=== PATIENT | male | born 1940 | race Caucasian/White ===

== ENCOUNTER 2020-02-03 18:50 | Inpatient (IN) | payer MEDICARE, MEDICAID ==
[~2020-02-03] VITALS: Ht 167.6 cm; Wt 101.6 kg
[2020-02-03] MEDS ORDERED: ACETAMINOPHEN 325MG TABLET PO STA (19:04)
[2020-02-03] MEDS ORDERED: SODIUM CHLORIDE 0.9% 1,000 ML IV ONE (19:04)
[2020-02-03] MEDS ORDERED: LEVOFLOXACIN 500MG PREMIX 100 ML IV ONE (19:15)
[2020-02-03 21:21] LABS: BASOPHILS % 0.2 % (0.0-2.0); HEMATOCRIT. 40.8 % (42.0-52.0); HEMOGLOBIN. 14.5 g/dL (14.0-18.0); LYMPHOCYTES % 10.2 % (20.0-50.0); MEAN CORPUSCULAR HEMOGLOBIN 32.8 pg (28.0-32.0); MEAN CORPUSCULAR VOLUME 92.7 fL (80.0-94.0); MEAN PLATELET VOLUME 7.6 fl (7.4-10.4); NEUTROPHILS % 84.6 % (40.0-76.0); PLATELET 178 x1000/uL (130-400); RED BLOOD CELL COUNT 4.41 mill/uL (4.7-6.1); RED CELL DISTRIBUTION WIDTH 14.5 % (11.6-14.6)
[2020-02-03 21:29] LABS: CHLORIDE 98 mEq/L (98-107)
[2020-02-03 21:33] LABS: ETHANOL BLOOD < 10 mg/dL
[2020-02-03 21:37] LABS: CREATINE KINASE 244 IU/L (39-308)
[2020-02-03 21:38] LABS: D-DIMER 1.24 mg/L FEU (<0.50); INR 1.1; PROTHROMBIN TIME 12.1 sec (9.6-11.0)
[2020-02-03 21:46] LABS: C REACTIVE PROTEIN QUANT > 190.0 mg/L (0.0-3.0)
[2020-02-04 03:31] VITALS: BP 121/67
[2020-02-04 04:07] VITALS: BP 121/67
[2020-02-04 08:00] VITALS: BP 133/72
[2020-02-04] MEDS: BLOOD SUGAR DIAGNOSTIC STRIP TEST SCH ×4 (08:08→21:00)
[2020-02-04] MEDS: INSULIN LISPRO 100 UNITS/ML SUBCUT SCH ×4 (08:08→21:00)
[2020-02-04] MEDS ORDERED: DEXTROSE 50% WATER 50ML SYRINGE IV PRN (08:15)
[2020-02-04] MEDS ORDERED: POTASSIUM CHLORIDE 20MEQ TABLET SR PO NR (08:15)
[2020-02-04 12:00] VITALS: BP 164/56
[2020-02-04] MEDS ORDERED: ONDANSETRON HCL 4MG/2ML INJ IV PRN (13:45)
[2020-02-04] MEDS ORDERED: ZOLPIDEM TARTRATE 5MG TABLET PO PRN (13:45)
[2020-02-04] MEDS ORDERED: DIPHENHYDRAMINE 50MG/ML VIAL IV PRN (13:45)
[2020-02-04] MEDS ORDERED: ACETAMINOPHEN 325MG TABLET PO PRN (13:45)
[2020-02-04] MEDS ORDERED: MAGNESIUM/ALUMINUM HYDROXIDE/SIMETHICONE 30ML UDC PO PRN (13:45)
[2020-02-04] MEDS ORDERED: CLON-457 PO (14:32)
[2020-02-04] MEDS ORDERED: PIOG15TA68 PO (14:32)
[2020-02-04] MEDS ORDERED: AMLO-78 MT (14:32)
[2020-02-04] MEDS ORDERED: PENI500T PO (14:32)
[2020-02-04] MEDS ORDERED: METF-414 PO (14:32)
[2020-02-04] MEDS ORDERED: PRAV40TA58 MT (14:32)
[2020-02-04] MEDS ORDERED: ALBUTEROL 6.7GM HFA INHALER ORI PRN (14:45)
[2020-02-04] MEDS ORDERED: BENZONATATE 100MG CAPSULE PO PRN (14:45)
[2020-02-04] MEDS ORDERED: AZITHROMYCIN 500 MG TABLET PO NR (15:00)
[2020-02-04] MEDS ORDERED: CEFTRIAXONE 1 G PREMIX 50 ML IV SCH (16:00)
[2020-02-04] MEDS: SODIUM CHLORIDE 0.9% INJ 3ML FLUSH IVF SCH ×2 (18:39→22:17)
[2020-02-04] MEDS: ENOXAPARIN 40MG/0.4ML SYR SUBCUT SCH (18:40)
[2020-02-04] MEDS: ACETAMINOPHEN 325MG TABLET PO PRN (18:40)
[2020-02-04 20:00] VITALS: BP 115/50
[2020-02-04] MEDS: GUAIFENESIN 600MG ER TABLET PO SCH (22:17)
[2020-02-04 23:06] LABS: CLARITY URINE CLEAR (CLEAR); COLOR URINE DARK YELLOW (YELLOW); KETONES URINE 1+ (NEGATIVE); LEUKOCYTE ESTERASE URINE NEGATIVE (NEGATIVE); NITRITE URINE NEGATIVE (NEGATIVE); OCCULT BLOOD URINE 2+ (NEGATIVE); PH URINE 5.5 (4.5-8.0); PROTEIN URINE 2+ (NEGATIVE); SPECIFIC GRAVITY URINE 1.023 (1.005-1.030)
[2020-02-04 23:18] LABS: *AMPHETAMINES SCREEN URINE NEGATIVE (NEGATIVE); *BARBITURATES SCREEN URINE NEGATIVE (NEGATIVE)
[2020-02-04 23:19] LABS: *BENZODIAZEPINES SCREEN URINE NEGATIVE (NEGATIVE); *COCAINE SCREEN URINE NEGATIVE (NEGATIVE); METHADONE URINE SCREEN NEGATIVE (NEGATIVE); OPIATES URINE SCREEN NEGATIVE (NEGATIVE); PHENCYCLIDINE URINE SCREEN NEGATIVE (NEGATIVE)
[2020-02-04 23:20] LABS: CANNABINOID URINE SCREEN NEGATIVE (NEGATIVE)
[2020-02-05 00:18] VITALS: BP 118/52
[2020-02-05 04:00] VITALS: BP 139/65
[2020-02-05] MEDS: SODIUM CHLORIDE 0.9% INJ 3ML FLUSH IVF SCH ×3 (05:57→21:29)
[2020-02-05] MEDS: INSULIN LISPRO 100 UNITS/ML SUBCUT SCH ×4 (05:57→21:29)
[2020-02-05] MEDS: BLOOD SUGAR DIAGNOSTIC STRIP TEST SCH ×4 (05:57→21:28)
[2020-02-05] MEDS: ACETAMINOPHEN 325MG TABLET PO PRN (06:45)
[2020-02-05 08:00] VITALS: BP 138/70
[2020-02-05] MEDS: AZITHROMYCIN 250 MG TABLET PO SCH (09:30)
[2020-02-05] MEDS: GUAIFENESIN 600MG ER TABLET PO SCH ×2 (09:31→21:27)
[2020-02-05] MEDS: ENOXAPARIN 40MG/0.4ML SYR SUBCUT SCH (09:31)
[2020-02-05 11:48] LABS: BG BASE EXCESS 0.2 mmol/L (-2.0-2.0); BG CARBOXYHEMOGLOBIN 0.5 % (0.5-1.5); BG DEOXYHEMOGLOBIN 19.8 % (0.0-5.0); BG FRACTION INSPIRED OXYGEN 21; BG HCO3 ACT 24.6 mmol/L (22.0-26.0); BG METHEMOGLOBIN 0.3 % (0.0-1.5); BG OXYHEMOGLOBIN 79.4 % (94.0-97.0); BG PCO2 39.1 mmHg (35.0-45.0); BG PH 7.416 (7.350-7.450); BG PO2 43.4 mmHg (75.0-100.0); BG SAMPLE SITE RIGHT RADIAL; BG TOTAL HEMOGLOBIN 13.8 g/dL (12.0-18.0); BG VENT MODE ROOM AIR
[2020-02-05 12:00] VITALS: BP 141/72
[2020-02-05] MEDS ORDERED: METHYLPREDNISOLONE SOD SUCC 40 MG/ML VIAL IV SCH (14:00)
[2020-02-05] MEDS: METHYLPREDNISOLONE SOD SUCC 40 MG/ML VIAL IV SCH ×2 (14:28→21:27)
[2020-02-05 16:00] VITALS: BP 133/61
[2020-02-05 16:24] LABS: BASOPHILS % 0.4 % (0.0-2.0); EOSINOPHILS % 1.3 % (0.0-5.0); HEMATOCRIT. 37.5 % (42.0-52.0); LYMPHOCYTES % 20.4 % (20.0-50.0); MEAN CORPUSCULAR HEMOGLOBIN 32.3 pg (28.0-32.0); MEAN CORPUSCULAR VOLUME 93.3 fL (80.0-94.0); MEAN PLATELET VOLUME 7.5 fl (7.4-10.4); MONOCYTES % 7.8 % (2.0-8.0); NEUTROPHILS % 70.1 % (40.0-76.0); PLATELET 209 x1000/uL (130-400); RED BLOOD CELL COUNT 4.02 mill/uL (4.7-6.1); RED CELL DISTRIBUTION WIDTH 14.9 % (11.6-14.6)
[2020-02-05 16:35] LABS: CHLORIDE 102 mEq/L (98-107); D-DIMER 0.89 mg/L FEU (<0.50); INR 1.1; PROTHROMBIN TIME 11.4 sec (9.6-11.0)
[2020-02-05] MEDS ORDERED: POTASSIUM CHLORIDE 20MEQ TABLET SR PO NR (18:00)
[2020-02-05] MEDS: CEFTRIAXONE 1,000 MG in DEXTROSE 5% WATER 50 ML IV SCH (18:04)
[2020-02-05 20:00] VITALS: BP 141/66
[2020-02-05] MEDS: ENOXAPARIN 100MG/ML SYR SUBCUT SCH (21:28)
[2020-02-06] VITALS: BP 114/69
[2020-02-06 04:00] VITALS: BP 145/77
[2020-02-06 04:16] LABS: BASOPHILS % 0.1 % (0.0-2.0); HEMATOCRIT. 38.2 % (42.0-52.0); HEMOGLOBIN. 13.5 g/dL (14.0-18.0); MEAN CORPUSCULAR HEMOGLOBIN 32.7 pg (28.0-32.0); MEAN CORPUSCULAR VOLUME 92.7 fL (80.0-94.0); MEAN PLATELET VOLUME 7.4 fl (7.4-10.4); MONOCYTES % 4.6 % (2.0-8.0); NEUTROPHILS % 80.3 % (40.0-76.0); PLATELET 229 x1000/uL (130-400); RED BLOOD CELL COUNT 4.13 mill/uL (4.7-6.1); RED CELL DISTRIBUTION WIDTH 14.7 % (11.6-14.6)
[2020-02-06 04:20] LABS: PROTHROMBIN TIME 11.3 sec (9.6-11.0)
[2020-02-06 04:24] LABS: CHLORIDE 106 mEq/L (98-107)
[2020-02-06] MEDS: SODIUM CHLORIDE 0.9% INJ 3ML FLUSH IVF SCH ×3 (06:42→22:12)
[2020-02-06] MEDS: METHYLPREDNISOLONE SOD SUCC 40 MG/ML VIAL IV SCH ×3 (06:42→22:11)
[2020-02-06] MEDS: BLOOD SUGAR DIAGNOSTIC STRIP TEST SCH ×4 (06:42→21:03)
[2020-02-06] MEDS: INSULIN LISPRO 100 UNITS/ML SUBCUT SCH ×3 (06:43→21:00)
[2020-02-06 08:00] VITALS: BP 130/76
[2020-02-06] MEDS: ENOXAPARIN 100MG/ML SYR SUBCUT SCH ×2 (10:42→22:11)
[2020-02-06] MEDS: AZITHROMYCIN 250 MG TABLET PO SCH (10:42)
[2020-02-06] MEDS: GUAIFENESIN 600MG ER TABLET PO SCH ×2 (10:42→22:10)
[2020-02-06 12:00] VITALS: BP 132/69
[2020-02-06 16:00] VITALS: BP 126/81
[2020-02-06] MEDS: CEFTRIAXONE 1,000 MG in DEXTROSE 5% WATER 50 ML IV SCH (18:32)
[2020-02-06 20:00] VITALS: BP 165/80
[2020-02-07] VITALS: BP_SYST 130; BP_SYST 66; BP_DIAS 66
[2020-02-07 04:00] VITALS: BP 136/74
[2020-02-07 06:38] LABS: MEAN CORPUSCULAR HEMOGLOBIN 32.6 pg (28.0-32.0); MEAN CORPUSCULAR VOLUME 92.9 fL (80.0-94.0); PLATELET 310 x1000/uL (130-400); RED BLOOD CELL COUNT 3.99 mill/uL (4.7-6.1); RED CELL DISTRIBUTION WIDTH 14.3 % (11.6-14.6)
[2020-02-07] MEDS: BLOOD SUGAR DIAGNOSTIC STRIP TEST SCH ×4 (06:38→21:46)
[2020-02-07] MEDS: METHYLPREDNISOLONE SOD SUCC 40 MG/ML VIAL IV SCH ×3 (06:57→21:53)
[2020-02-07] MEDS: INSULIN LISPRO 100 UNITS/ML SUBCUT SCH ×4 (06:58→21:55)
[2020-02-07] MEDS: SODIUM CHLORIDE 0.9% INJ 3ML FLUSH IVF SCH ×3 (06:58→21:54)
[2020-02-07 07:21] LABS: CHLORIDE 106 mEq/L (98-107)
[2020-02-07 08:00] VITALS: BP 153/74
[2020-02-07] MEDS: GUAIFENESIN 600MG ER TABLET PO SCH ×2 (09:14→21:53)
[2020-02-07] MEDS: AZITHROMYCIN 250 MG TABLET PO SCH (09:14)
[2020-02-07] MEDS: ENOXAPARIN 100MG/ML SYR SUBCUT SCH ×2 (09:14→21:53)
[2020-02-07 09:42] LABS: BG CARBOXYHEMOGLOBIN 0.3 % (0.5-1.5); BG FRACTION INSPIRED OXYGEN 52; BG HCO3 ACT 27.4 mmol/L (22.0-26.0); BG METHEMOGLOBIN 0.2 % (0.0-1.5); BG OXYHEMOGLOBIN 93.5 % (94.0-97.0); BG PCO2 41.1 mmHg (35.0-45.0); BG PH 7.441 (7.350-7.450); BG PO2 68.6 mmHg (75.0-100.0); BG SAMPLE SITE RIGHT RADIAL; BG TOTAL HEMOGLOBIN 14.3 g/dL (12.0-18.0); BG VENT MODE NASAL CANNULA
[2020-02-07] MEDS ORDERED: LIDOCAINE HCL/PF 1% 2ML VIAL ONE (10:25)
[2020-02-07 12:00] VITALS: BP 156/71
[2020-02-07 16:00] VITALS: BP 148/73
[2020-02-07] MEDS: CEFTRIAXONE 1,000 MG in DEXTROSE 5% WATER 50 ML IV SCH (17:27)
[2020-02-07 20:00] VITALS: BP 162/77
[2020-02-07] MEDS: CLONIDINE 0.1MG TABLET PO PRN (21:53)
[2020-02-08] VITALS (7 sets, daily range): BP systolic 132–165; BP diastolic 71–82
[2020-02-08] MEDS: SODIUM CHLORIDE 0.9% INJ 3ML FLUSH IVF SCH ×3 (06:13→21:23)
[2020-02-08] MEDS: METHYLPREDNISOLONE SOD SUCC 40 MG/ML VIAL IV SCH ×3 (06:13→21:23)
[2020-02-08] MEDS: BLOOD SUGAR DIAGNOSTIC STRIP TEST SCH ×4 (06:36→21:35)
[2020-02-08] MEDS: INSULIN LISPRO 100 UNITS/ML SUBCUT SCH ×4 (06:38→21:54)
[2020-02-08] MEDS: GUAIFENESIN 600MG ER TABLET PO SCH ×2 (08:15→21:23)
[2020-02-08] MEDS: AZITHROMYCIN 250 MG TABLET PO SCH (08:15)
[2020-02-08] MEDS: ENOXAPARIN 100MG/ML SYR SUBCUT SCH ×2 (08:16→21:25)
[2020-02-08] MEDS ORDERED: INSULIN LISPRO 100 UNITS/ML SUBCUT NR (12:23)
[2020-02-08] MEDS: CEFTRIAXONE 1,000 MG in DEXTROSE 5% WATER 50 ML IV SCH (18:17)
[2020-02-08] MEDS: CLONIDINE 0.1MG TABLET PO PRN (21:39)
[2020-02-08] MEDS: INSULIN GLARGINE UD 100 UNITS/ML SYR SUBCUT SCH (23:12)
[2020-02-09] VITALS: BP 149/78
[2020-02-09 04:48] VITALS: BP 136/81
[2020-02-09] MEDS: SODIUM CHLORIDE 0.9% INJ 3ML FLUSH IVF SCH ×3 (05:42→21:41)
[2020-02-09] MEDS: METHYLPREDNISOLONE SOD SUCC 40 MG/ML VIAL IV SCH ×2 (05:42→13:23)
[2020-02-09] MEDS: BLOOD SUGAR DIAGNOSTIC STRIP TEST SCH ×4 (06:22→20:28)
[2020-02-09] MEDS: INSULIN LISPRO 100 UNITS/ML SUBCUT SCH ×4 (06:27→21:03)
[2020-02-09 08:00] VITALS: BP 157/87
[2020-02-09] MEDS: ENOXAPARIN 100MG/ML SYR SUBCUT SCH ×2 (08:20→20:48)
[2020-02-09] MEDS: GUAIFENESIN 600MG ER TABLET PO SCH ×2 (08:20→20:48)
[2020-02-09 09:12] LABS: HEMATOCRIT 39.3 % (42.0-52.0); HEMOGLOBIN 13.3 g/dL (14.0-18.0); MEAN CORPUSCULAR HEMOGLOBIN 31.6 pg (28.0-32.0); MEAN CORPUSCULAR VOLUME 93.3 fL (80.0-94.0); PLATELET 360 x1000/uL (130-400); RED BLOOD CELL COUNT 4.22 mill/uL (4.7-6.1); RED CELL DISTRIBUTION WIDTH 14.5 % (11.6-14.6)
[2020-02-09 09:29] LABS: CHLORIDE 103 mEq/L (98-107)
[2020-02-09 09:49] LABS: BG BASE EXCESS 3.9 mmol/L (-2.0-2.0); BG CARBOXYHEMOGLOBIN 0.2 % (0.5-1.5); BG DEOXYHEMOGLOBIN 3.7 % (0.0-5.0); BG FRACTION INSPIRED OXYGEN 48; BG HCO3 ACT 28.8 mmol/L (22.0-26.0); BG METHEMOGLOBIN 0.1 % (0.0-1.5); BG OXYGEN SATURATION 96.3 % (92.0-98.5); BG PCO2 44.6 mmHg (35.0-45.0); BG PH 7.428 (7.350-7.450); BG SAMPLE SITE RIGHT RADIAL; BG TOTAL HEMOGLOBIN 13.4 g/dL (12.0-18.0); BG VENT MODE NASAL CANNULA
[2020-02-09] MEDS: INSULIN GLARGINE UD 100 UNITS/ML SYR SUBCUT SCH ×2 (10:28→21:45)
[2020-02-09 12:00] VITALS: BP 155/83
[2020-02-09 16:00] VITALS: BP 155/83
[2020-02-09] MEDS: CEFTRIAXONE 1,000 MG in DEXTROSE 5% WATER 50 ML IV SCH (18:04)
[2020-02-09 20:51] VITALS: BP 142/72
[2020-02-10 00:15] VITALS: BP 135/77
[2020-02-10] MEDS: METHYLPREDNISOLONE SOD SUCC 40 MG/ML VIAL IV SCH ×3 (02:30→21:59)
[2020-02-10 04:00] VITALS: BP 144/69
[2020-02-10] MEDS: SODIUM CHLORIDE 0.9% INJ 3ML FLUSH IVF SCH ×3 (05:18→21:54)
[2020-02-10] MEDS: BLOOD SUGAR DIAGNOSTIC STRIP TEST SCH ×4 (05:54→21:55)
[2020-02-10] MEDS: INSULIN LISPRO 100 UNITS/ML SUBCUT SCH ×4 (06:12→21:53)
[2020-02-10 08:00] VITALS: BP 154/83
[2020-02-10] MEDS: GUAIFENESIN 600MG ER TABLET PO SCH ×2 (09:25→21:53)
[2020-02-10] MEDS: ENOXAPARIN 100MG/ML SYR SUBCUT SCH ×2 (09:26→21:52)
[2020-02-10] MEDS: INSULIN GLARGINE UD 100 UNITS/ML SYR SUBCUT SCH ×2 (10:42→21:54)
[2020-02-10 12:00] VITALS: BP 160/82
[2020-02-10 16:00] VITALS: BP 151/79
[2020-02-10 20:00] VITALS: BP 161/79
[2020-02-11] VITALS: BP 149/70
[2020-02-11 04:00] VITALS: BP 148/79
[2020-02-11] MEDS: SODIUM CHLORIDE 0.9% INJ 3ML FLUSH IVF SCH ×3 (05:16→21:55)
[2020-02-11] MEDS: BLOOD SUGAR DIAGNOSTIC STRIP TEST SCH ×4 (06:20→21:54)
[2020-02-11] MEDS: INSULIN LISPRO 100 UNITS/ML SUBCUT SCH ×4 (06:28→21:53)
[2020-02-11 08:00] VITALS: BP 160/75
[2020-02-11 08:01] LABS: CHLORIDE 102 mEq/L (98-107)
[2020-02-11] MEDS: GUAIFENESIN 600MG ER TABLET PO SCH ×2 (10:59→21:53)
[2020-02-11] MEDS: ENOXAPARIN 100MG/ML SYR SUBCUT SCH ×2 (10:59→21:55)
[2020-02-11] MEDS: INSULIN GLARGINE UD 100 UNITS/ML SYR SUBCUT SCH ×2 (11:00→21:52)
[2020-02-11 11:12] LABS: BG BASE EXCESS 3.6 mmol/L (-2.0-2.0); BG CARBOXYHEMOGLOBIN 0.1 % (0.5-1.5); BG DEOXYHEMOGLOBIN 8.9 % (0.0-5.0); BG FRACTION INSPIRED OXYGEN 21; BG HCO3 ACT 27.4 mmol/L (22.0-26.0); BG METHEMOGLOBIN 0.1 % (0.0-1.5); BG OXYGEN SATURATION 91.1 % (92.0-98.5); BG OXYHEMOGLOBIN 90.9 % (94.0-97.0); BG PH 7.465 (7.350-7.450); BG PO2 58.5 mmHg (75.0-100.0); BG SAMPLE SITE RIGHT RADIAL; BG TOTAL HEMOGLOBIN 14.4 g/dL (12.0-18.0); BG VENT MODE ROOM AIR
[2020-02-11 12:00] VITALS: BP 157/80
[2020-02-11 16:00] VITALS: BP 160/80
[2020-02-11 20:00] VITALS: BP 154/69
[2020-02-11] MEDS: CLONIDINE 0.1MG TABLET PO PRN (21:54)
[2020-02-11] MEDS: METHYLPREDNISOLONE SOD SUCC 40 MG/ML VIAL IV SCH (21:55)
[2020-02-12] VITALS (7 sets, daily range): BP systolic 109–158; BP diastolic 73–86
[2020-02-12] MEDS: SODIUM CHLORIDE 0.9% INJ 3ML FLUSH IVF SCH ×3 (05:09→21:07)
[2020-02-12] MEDS: BLOOD SUGAR DIAGNOSTIC STRIP TEST SCH ×4 (06:23→21:13)
[2020-02-12] MEDS: INSULIN LISPRO 100 UNITS/ML SUBCUT SCH ×4 (06:36→21:08)
[2020-02-12] MEDS: INSULIN GLARGINE UD 100 UNITS/ML SYR SUBCUT SCH ×2 (10:21→22:00)
[2020-02-12] MEDS: ENOXAPARIN 100MG/ML SYR SUBCUT SCH ×2 (10:22→21:07)
[2020-02-12] MEDS: GUAIFENESIN 600MG ER TABLET PO SCH ×2 (10:22→21:07)
[2020-02-12] MEDS ORDERED: METF-414 MT (13:50)
[2020-02-12] MEDS ORDERED: BLOO-1465 MT (13:50)
[2020-02-12] MEDS ORDERED: BLOO1KIT74 TP (13:50)
[2020-02-12] MEDS ORDERED: AMLO5TAB4 MT (13:50)
[2020-02-12] MEDS ORDERED: ALBU90AE INH (13:50)
[2020-02-12] MEDS ORDERED: P20 PO (13:50)
[2020-02-12] MEDS ORDERED: INSU100I28 SQ (13:50)
[2020-02-12] MEDS: METHYLPREDNISOLONE SOD SUCC 40 MG/ML VIAL IV SCH (21:07)
[2020-02-13] VITALS: BP 157/77
== END 2020-02-13 02:25 | disposition home or self-care (01) | DRG 871 ==
LOC: ER 18:50 → 7EST 20:00 → EDBEDREQ 20:02 → EDBEDREQTM 20:02 → ENRESERV 02-04 02:22
PROVIDERS: ADMIT Internal Medicine; ATTEND Internal Medicine
DX: A41.89 Other specified sepsis (principal); U07.1 COVID-19; J96.01 Acute respiratory failure with hypoxia; J12.89 Other viral pneumonia; D68.59 Other primary thrombophilia; E66.2 Morbid (severe) obesity with alveolar hypoventilation; E44.1 Mild protein-calorie malnutrition; E87.1 Hypo-osmolality and hyponatremia; E11.9 Type 2 diabetes mellitus without complications; E87.6 Hypokalemia; G90.8 Other disorders of autonomic nervous system; E86.0 Dehydration; I16.0 Hypertensive urgency; I50.9 Heart failure, unspecified; I11.0 Hypertensive heart disease with heart failure; N31.2 Flaccid neuropathic bladder, not elsewhere classified; Z79.4 Long term (current) use of insulin; Z68.36 Body mass index [BMI] 36.0-36.9, adult; Z79.899 Other long term (current) drug therapy
CPT/HCPCS: 36415; 36600; 71045; 80048; 80053; 80305; 80320; 81003; 82375; 82550; 82728; 82805; 82962; 83036; 83605; 83615; 83880; 84145; 84484; 85025; 85027; 85362; 85379; 85384; 86140; 87635; 87804; 93005; 99291; J0696; J1650; J1815; J1956; J2920; J3490; J7030; J7060; G0480; U0003-CS

== ENCOUNTER 2022-08-01 22:55 | Emergency (ER) | payer BC, MEDICAID ==
[~2022-08-01] VITALS: Ht 170.2 cm; Wt 100.0 kg
[~2022-08-01 22:55] MED LIST: ALBU90AE INH; AMLO5TAB4 MT; BLOO-1465 MT; BLOO1KIT74 TP; INSU100I28 SQ; METF-414 MT; METF-414 PO; P20 PO; PRAV40TA58 MT
[2022-08-01] MEDS ORDERED: SODIUM CHLORIDE 0.9% 1,000 ML IV ONE (23:45)
[2022-08-02 00:01] LABS: HEMATOCRIT. 35.1 % (42.0-52.0); HEMOGLOBIN. 11.9 g/dL (14.0-18.0); MEAN CORPUSCULAR HEMOGLOBIN 32.4 pg (28.0-32.0); MEAN CORPUSCULAR VOLUME 95.6 fL (80.0-94.0); MEAN PLATELET VOLUME 7.2 fl (7.4-10.4); PLATELET 218 x1000/uL (130-400); RED BLOOD CELL COUNT 3.67 mill/uL (4.7-6.1); RED CELL DISTRIBUTION WIDTH 14.5 % (11.6-14.6)
[2022-08-02 00:04] LABS: CHLORIDE 102 mEq/L (98-107)
[2022-08-02 00:42] LABS: PLATELET ESTIMATE NORMAL
[2022-08-02 03:40] LABS: CLARITY URINE CLEAR (CLEAR); COLOR URINE YELLOW (YELLOW); KETONES URINE NEGATIVE (NEGATIVE); LEUKOCYTE ESTERASE URINE NEGATIVE (NEGATIVE); NITRITE URINE NEGATIVE (NEGATIVE); OCCULT BLOOD URINE NEGATIVE (NEGATIVE); PH URINE 5.5 (4.5-8.0); PROTEIN URINE 2+ (NEGATIVE); SPECIFIC GRAVITY URINE 1.018 (1.005-1.030)
[2022-08-02] MEDS ORDERED: TOPUD MT (05:58)
[2022-08-02 06:00] VITALS: BP 125/71
== END 2022-08-02 07:00 | disposition home or self-care (01) ==
LOC: ER 22:55
DX: B34.9 Viral infection, unspecified (principal); I10 Essential (primary) hypertension; E78.00 Pure hypercholesterolemia, unspecified; E11.9 Type 2 diabetes mellitus without complications; Z20.822 Contact with and (suspected) exposure to COVID-19; Z79.84 Long term (current) use of oral hypoglycemic drugs
CPT/HCPCS: 36415; 71045; 80053; 81003; 82962; 83605; 83690; 85025; 87040; 87077; 87186; 87426; 87804; 93005; 96360; 99285; C9803; J7030

== ENCOUNTER 2024-03-23 11:45 | Inpatient (IN) | payer MEDICARE, MEDICAID ==
[~2024-03-23] VITALS: Ht 170.2 cm; Wt 99.8 kg
[~2024-03-23 11:45] MED LIST changes: +TOPUD MT
[2024-03-23 11:55] VITALS: O2SAT 100
[2024-03-23] MEDS: VANCOMYCIN 1G PREMIX 200 ML IV ONE (12:15)
[2024-03-23] MEDS: IOHEXOL-350 100 ML BOTTLE ONE (12:26)
[2024-03-23] MEDS: SODIUM CHLORIDE 0.9% 1000ML BAG (SEPSIS BOLUS) IV ONE (12:50)
[2024-03-23] MEDS: PIPERACILLIN/TAZO 3.375G/50ML 50 ML IV ONE (12:50)
[2024-03-23 13:01] LABS: HEMATOCRIT. 37.5 % (42.0-52.0); HEMOGLOBIN. 12.5 g/dL (14.0-18.0); MEAN CORPUSCULAR HEMOGLOBIN 32.9 pg (28.0-32.0); MEAN CORPUSCULAR HGB CONC 33.4 g/dL (31.0-37.0); MEAN CORPUSCULAR VOLUME 98.5 fL (80.0-94.0); MEAN PLATELET VOLUME 7.6 fl (7.4-10.4); PLATELET 166 x1000/uL (130-400); RED BLOOD CELL COUNT 3.81 mill/uL (4.7-6.1); RED CELL DISTRIBUTION WIDTH 14.9 % (11.6-14.6)
[2024-03-23 13:08] LABS: CHLORIDE 101 mEq/L (98-107); SODIUM 136 mEq/L (136-145)
[2024-03-23 13:09] LABS: CALCIUM 8.3 mg/dL (8.7-10.4); CARBON DIOXIDE 18 mEq/L (21-32)
[2024-03-23 13:14] LABS: CREATININE 1.4 mg/dL (0.6-1.3); DIFFERENTIAL COMMENT 1; GLUCOSE 96 mg/dL (70-105); TROPONIN I HIGH SENSITIVITY 43 ng/L (3.0-53); UREA NITROGEN BLOOD 20 mg/dL (9-23)
[2024-03-23 13:15] LABS: ALANINE AMINOTRANSFERASE 291 IU/L (10-49); ALBUMIN 3.4 g/dL (3.2-4.8); ASPARTATE AMINOTRANSFERASE 328 IU/L (<34)
[2024-03-23 13:16] LABS: BILIRUBIN TOTAL 1.8 mg/dL (0.1-1.0); PROTEIN TOTAL 5.8 g/dL (6.0-8.3)
[2024-03-23 13:33] LABS: INR 1.3; PARTIAL THROMBOPLASTIN TIME 28.5 sec (23.4-31.0); PROTHROMBIN TIME 13.9 sec (9.6-11.0)
[2024-03-23 13:38] LABS: LACTIC ACID 5.5 mmol/L (0.4-2.0)
[2024-03-23 13:45] LABS: PLATELET ESTIMATE NORMAL
[2024-03-23 15:25] LABS: AMMONIA 19 uMol/L (<32)
[2024-03-23] MEDS: ASPIRIN 81MG TABLET PO SCH (15:30)
[2024-03-23] MEDS: CLOPIDOGREL 75MG TABLET PO SCH (15:30)
[2024-03-23] MEDS: POTASSIUM CHLORIDE 20MEQ/PACKET PO ONE (16:33)
[2024-03-23] MEDS ORDERED: ATORVASTATIN CALCIUM 40MG TABLET PO NR (21:00)
[2024-03-23] MEDS ORDERED: ATORVASTATIN CALCIUM 40MG TABLET PO SCH (21:00)
[2024-03-24] VITALS (100 sets, daily range): BP systolic 42–217; BP diastolic 12–124; PULSE 60–144; RESP 0–112; TEMP 97.6–98.9
[2024-03-24] MEDS ORDERED: SODIUM CHLORIDE 0.9% 1000ML BAG (SEPSIS BOLUS) IV ONE (00:45)
[2024-03-24] MEDS: SODIUM CHLORIDE 0.9% 1,000 ML IV ONE ×2 (00:48→05:40)
[2024-03-24] MEDS: DEXTROSE 50% WATER 50ML SYRINGE IV PRN (03:05)
[2024-03-24] MEDS: NOREPINEPHRINE 8MG/250ML PMX 250 ML IV PRN (03:15)
[2024-03-24 04:27] LABS: BG BASE EXCESS -16.8 mmol/L (-2.0-2.0); BG CARBOXYHEMOGLOBIN 0.3 % (0.5-1.5); BG DEOXYHEMOGLOBIN 5.9 % (0.0-5.0); BG FRACTION INSPIRED OXYGEN 28; BG HCO3 ACT 9.6 mmol/L (22.0-26.0); BG METHEMOGLOBIN 0.2 % (0.0-1.5); BG OXYGEN SATURATION 94.1 % (92.0-98.5); BG OXYHEMOGLOBIN 93.6 % (94.0-97.0); BG PCO2 25.6 mmHg (35.0-45.0); BG PH 7.194 (7.350-7.450); BG PO2 83.5 mmHg (75.0-100.0); BG SAMPLE SITE RIGHT RADIAL; BG TOTAL HEMOGLOBIN 12.5 g/dL (12.0-18.0); BG VENT MODE NASAL CANNULA
[2024-03-24] MEDS ORDERED: SODIUM CHLORIDE 0.9% 100 ML IV ONE (05:30)
[2024-03-24] MEDS: SODIUM BICARBONATE 8.4% 1 MEQ/ML 50ML SYR IV NR ×2 (05:39→18:51)
[2024-03-24 06:16] LABS: POTASSIUM 3.5 mEq/L (3.5-5.1)
[2024-03-24 06:17] LABS: CALCIUM 8.2 mg/dL (8.7-10.4)
[2024-03-24 06:29] LABS: CREATININE 2.9 mg/dL (0.6-1.3)
[2024-03-24] MEDS: DEXT 5%/0.45% NACL 1000ML 1,000 ML IV SCH (07:56)
[2024-03-24] MEDS ORDERED: LIDOCAINE HCL 1% 10 MG/ML 10ML VIAL ONE ×3 (08:02→13:21)
[2024-03-24] MEDS ORDERED: VANCOMYCIN 1GM/200ML PMX (BAXTER) IV SCH (09:00)
[2024-03-24] MEDS: ENOXAPARIN 40MG/0.4ML SYR SUBCUT SCH (09:00)
[2024-03-24 09:15] LABS: BG BASE EXCESS -10.3 mmol/L (-2.0-2.0); BG CARBOXYHEMOGLOBIN 0.3 % (0.5-1.5); BG DEOXYHEMOGLOBIN 9.1 % (0.0-5.0); BG FRACTION INSPIRED OXYGEN 36; BG HCO3 ACT 14.2 mmol/L (22.0-26.0); BG METHEMOGLOBIN 0.2 % (0.0-1.5); BG OXYGEN SATURATION 90.9 % (92.0-98.5); BG OXYHEMOGLOBIN 90.4 % (94.0-97.0); BG PCO2 27.6 mmHg (35.0-45.0); BG PH 7.329 (7.350-7.450); BG PO2 63.1 mmHg (75.0-100.0); BG SAMPLE SITE RIGHT RADIAL; BG TOTAL HEMOGLOBIN 11.6 g/dL (12.0-18.0); BG VENT MODE NASAL CANNULA
[2024-03-24] MEDS: PIPERACILLIN/TAZO 3.375G/50ML 50 ML IV SCH (09:31)
[2024-03-24] MEDS: PANTOPRAZOLE SODIUM 40 MG/VIAL IV SCH (09:31)
[2024-03-24 10:08] LABS: HEMOGLOBIN 10.6 g/dL (14.0-18.0); MEAN CORPUSCULAR HEMOGLOBIN 32.8 pg (28.0-32.0); MEAN CORPUSCULAR HGB CONC 33.1 g/dL (31.0-37.0); MEAN CORPUSCULAR VOLUME 99.2 fL (80.0-94.0); PLATELET 117 x1000/uL (130-400); RED BLOOD CELL COUNT 3.23 mill/uL (4.7-6.1); RED CELL DISTRIBUTION WIDTH 15.2 % (11.6-14.6); WHITE BLOOD COUNT 16.2 x1000/uL (4.5-11.0)
[2024-03-24] MEDS: NOREPINEPHRINE 32 MG in DEXT 5% WATER 218 ML IV PRN (12:04)
[2024-03-24] MEDS: SODIUM BICARBONATE 150 MEQ in DEXT 10% WATER 850 ML IV SCH (12:11)
[2024-03-24 12:59] LABS: POTASSIUM 3.3 mEq/L (3.5-5.1)
[2024-03-24 13:01] LABS: CALCIUM 7.5 mg/dL (8.7-10.4)
[2024-03-24 13:05] LABS: CREATININE 2.9 mg/dL (0.6-1.3)
[2024-03-24 15:54] LABS: CLARITY URINE TURBID (CLEAR); COLOR URINE DARK YELLOW (YELLOW); GLUCOSE URINE NEGATIVE (NEGATIVE); KETONES URINE TRACE (NEGATIVE); LEUKOCYTE ESTERASE URINE TRACE (NEGATIVE); NITRITE URINE NEGATIVE (NEGATIVE); OCCULT BLOOD URINE 3+ (NEGATIVE); PROTEIN URINE 3+ (NEGATIVE); SPECIFIC GRAVITY URINE 1.052 (1.005-1.030)
[2024-03-24 16:08] LABS: BACTERIA URINE 3+; RBC URINE 15-25 /hpf (0-2); SQUAMOUS EPITHELIAL CELL URINE FEW /lpf (RARE/1+)
[2024-03-24 16:09] LABS: WBC URINE 0-2 /hpf (0-2)
[2024-03-24 16:11] LABS: *AMPHETAMINES SCREEN URINE NEGATIVE (NEGATIVE)
[2024-03-24 16:12] LABS: *BARBITURATES SCREEN URINE NEGATIVE (NEGATIVE); *COCAINE SCREEN URINE NEGATIVE (NEGATIVE); ECSTASY MDMA SCREEN URINE NEGATIVE (NEGATIVE); METHADONE URINE SCREEN NEGATIVE (NEGATIVE); OPIATES URINE SCREEN NEGATIVE (NEGATIVE); PHENCYCLIDINE URINE SCREEN NEGATIVE (NEGATIVE)
[2024-03-24 16:48] LABS: BG BASE EXCESS -13.9 mmol/L (-2.0-2.0); BG CARBOXYHEMOGLOBIN 0.3 % (0.5-1.5); BG DEOXYHEMOGLOBIN 1.1 % (0.0-5.0); BG FRACTION INSPIRED OXYGEN 100; BG HCO3 ACT 13.6 mmol/L (22.0-26.0); BG METHEMOGLOBIN 0.2 % (0.0-1.5); BG OXYGEN SATURATION 98.9 % (92.0-98.5); BG OXYHEMOGLOBIN 98.4 % (94.0-97.0); BG PCO2 37.6 mmHg (35.0-45.0); BG PH 7.176 (7.350-7.450); BG PO2 230.5 mmHg (75.0-100.0); BG SAMPLE SITE RIGHT RADIAL; BG TOTAL HEMOGLOBIN 10.4 g/dL (12.0-18.0); BG VENT MODE VENT - AC
[2024-03-24 17:34] LABS: AMMONIA 22 uMol/L (<32)
[2024-03-24] MEDS: MEROPENEM 500MG/50ML 50 ML IV SCH (18:09)
[2024-03-24] MEDS: PHENYLEPHRINE 50MG/250ML PMX 250 ML IV PRN (18:09)
[2024-03-24] MEDS: IPRATROPIUM/ALBUTEROL 0.5-3(2.5)MG/3ML NEB ONE (18:31)
[2024-03-24 18:32] LABS: BG BASE EXCESS -15.3 mmol/L (-2.0-2.0); BG CARBOXYHEMOGLOBIN 0.3 % (0.5-1.5); BG DEOXYHEMOGLOBIN 0.9 % (0.0-5.0); BG FRACTION INSPIRED OXYGEN 100; BG HCO3 ACT 12.7 mmol/L (22.0-26.0); BG METHEMOGLOBIN 0.2 % (0.0-1.5); BG OXYGEN SATURATION 99.1 % (92.0-98.5); BG OXYHEMOGLOBIN 98.6 % (94.0-97.0); BG PCO2 37.7 mmHg (35.0-45.0); BG PH 7.145 (7.350-7.450); BG SAMPLE SITE RIGHT RADIAL; BG TOTAL HEMOGLOBIN 11.3 g/dL (12.0-18.0); BG VENT MODE VENT - AC
[2024-03-24 18:38] LABS: POTASSIUM 3.4 mEq/L (3.5-5.1)
[2024-03-24 18:39] LABS: CALCIUM 7.2 mg/dL (8.7-10.4)
[2024-03-24 18:43] LABS: CREATININE 3.2 mg/dL (0.6-1.3)
[2024-03-24] MEDS: METHYLPREDNISOLONE SOD SUCC 125MG/2ML (ACT-O-VIAL) IV NR (18:51)
[2024-03-24] MEDS: EPINEPHRINE 10 MG in SODIUM CHLORIDE 0.9% 240 ML IV PRN (19:55)
[2024-03-24] MEDS: IPRATROPIUM/ALBUTEROL 0.5-3(2.5)MG/3ML NEB HHN SCH (20:37)
[2024-03-24] MEDS: VASOPRESSIN 20 UNIT in SODIUM CHLORIDE 0.9% 99 ML IV PRN (20:40)
[2024-03-24 21:16] LABS: BG BASE EXCESS -8.9 mmol/L (-2.0-2.0); BG CARBOXYHEMOGLOBIN 0.2 % (0.5-1.5); BG DEOXYHEMOGLOBIN 1.3 % (0.0-5.0); BG FRACTION INSPIRED OXYGEN 100; BG HCO3 ACT 16.6 mmol/L (22.0-26.0); BG METHEMOGLOBIN 0.3 % (0.0-1.5); BG OXYGEN SATURATION 98.7 % (92.0-98.5); BG OXYHEMOGLOBIN 98.2 % (94.0-97.0); BG PCO2 34.4 mmHg (35.0-45.0); BG PH 7.301 (7.350-7.450); BG PO2 228.1 mmHg (75.0-100.0); BG SAMPLE SITE RIGHT RADIAL; BG TOTAL HEMOGLOBIN 10.5 g/dL (12.0-18.0); BG VENT MODE VENT - AC
[2024-03-25] VITALS (50 sets, daily range): BP systolic 48–167; BP diastolic 32–118; PULSE 80–177; RESP 20–37; TEMP 99.1–99.6
[2024-03-25] MEDS: PHENYLEPHRINE 100 MG in DEXT 5% WATER 240 ML IV PRN (01:54)
[2024-03-25] MEDS: FENTANYL 2500MCG/250ML PMX 250 ML IV SCH (04:49)
[2024-03-25 05:01] LABS: BG BASE EXCESS -6.8 mmol/L (-2.0-2.0); BG CARBOXYHEMOGLOBIN 0.2 % (0.5-1.5); BG DEOXYHEMOGLOBIN 4.9 % (0.0-5.0); BG FRACTION INSPIRED OXYGEN 100; BG HCO3 ACT 17.9 mmol/L (22.0-26.0); BG METHEMOGLOBIN 0.3 % (0.0-1.5); BG OXYGEN SATURATION 95.1 % (92.0-98.5); BG OXYHEMOGLOBIN 94.6 % (94.0-97.0); BG PH 7.352 (7.350-7.450); BG PO2 84.6 mmHg (75.0-100.0); BG SAMPLE SITE RIGHT RADIAL; BG TOTAL HEMOGLOBIN 10.7 g/dL (12.0-18.0); BG TOTAL RESPIRATORY RATE 36 b/min; BG VENT MODE VENT - AC
[2024-03-25 05:23] LABS: CARBON DIOXIDE 19 mEq/L (21-32); CHLORIDE 99 mEq/L (98-107); HEMATOCRIT. 31.1 % (42.0-52.0); HEMOGLOBIN. 10.3 g/dL (14.0-18.0); MEAN CORPUSCULAR HEMOGLOBIN 32.9 pg (28.0-32.0); MEAN CORPUSCULAR HGB CONC 33.1 g/dL (31.0-37.0); MEAN CORPUSCULAR VOLUME 99.4 fL (80.0-94.0); MEAN PLATELET VOLUME 8.5 fl (7.4-10.4); PLATELET 97 x1000/uL (130-400); POTASSIUM 4.3 mEq/L (3.5-5.1); RED BLOOD CELL COUNT 3.13 mill/uL (4.7-6.1); RED CELL DISTRIBUTION WIDTH 15.6 % (11.6-14.6); SODIUM 149 mEq/L (136-145); WHITE BLOOD COUNT 16.4 x1000/uL (4.5-11.0)
[2024-03-25 05:24] LABS: CALCIUM 7.2 mg/dL (8.7-10.4)
[2024-03-25 05:26] LABS: UREA NITROGEN BLOOD 55 mg/dL (9-23)
[2024-03-25 05:29] LABS: CREATININE 3.8 mg/dL (0.6-1.3); GLUCOSE 149 mg/dL (70-105)
[2024-03-25 05:30] LABS: ALANINE AMINOTRANSFERASE 928 IU/L (10-49); ALBUMIN 2.6 g/dL (3.2-4.8)
[2024-03-25 05:31] LABS: BILIRUBIN DIRECT 2.6 mg/dL (<=3.0)
[2024-03-25 05:32] LABS: BILIRUBIN TOTAL 3.1 mg/dL (0.1-1.0); PROTEIN TOTAL 4.6 g/dL (6.0-8.3)
[2024-03-25 05:42] LABS: ASPARTATE AMINOTRANSFERASE 1325 IU/L (<34)
[2024-03-25 06:37] LABS: PHOSPHORUS 9.3 mg/dL (2.5-4.9)
[2024-03-25 07:16] LABS: DIFFERENTIAL COMMENT 1
[2024-03-25 16:37] LABS: PLATELET ESTIMATE DECREASED
[2024-03-25] MEDS ORDERED: MEROPENEM 500MG/50ML 50 ML IV SCH (17:00)
[2024-03-25] MEDS ORDERED: VANCOMYCIN 500MG/100ML IV NR (21:00)
[2024-03-26 14:26] LABS: VITAMIN B12 SERUM 544 pg/mL (211-911)
[2024-03-27 08:51] LABS: HEPATITIS B SURFACE ANTIGEN NEGATIVE (Negative)
[2024-03-27 09:13] LABS: HEPATITIS A AB IGM NEGATIVE (Negative); HEPATITIS B CORE AB IGM NEGATIVE (Negative)
[2024-03-27 09:14] LABS: HEPATITIS C AB NON REACTIVE (Neg) (Negative)
== END 2024-03-25 10:12 | DRG 871 ==
LOC: ER 11:57 → 5EST 16:07 → EDBEDREQ 16:17 → EDBEDREQSVC 16:17 → ER 23:40 → CVICU 03-24 02:33
PROVIDERS: ADMIT Internal Medicine; ATTEND Internal Medicine
PROC: 5A1945Z Respiratory Ventilation, 24-96 Consecutive Hours (ICD-10-PCS; principal; 2024-03-24)
PROC: 0BH17EZ Insertion of Endotracheal Airway into Trachea, Via Natural or Artificial Opening (ICD-10-PCS; 2024-03-24)
PROC: 05HY33Z Insertion of Infusion Device into Upper Vein, Percutaneous Approach (ICD-10-PCS; 2024-03-24)
PROC: B54MZZA Ultrasonography of Right Upper Extremity Veins, Guidance (ICD-10-PCS; 2024-03-24)
PROC: 02HV33Z Insertion of Infusion Device into Superior Vena Cava, Percutaneous Approach (ICD-10-PCS; 2024-03-25)
PROC: B548ZZA Ultrasonography of Superior Vena Cava, Guidance (ICD-10-PCS; 2024-03-25)
DX: A41.59 Other Gram-negative sepsis (principal); J69.0 Pneumonitis due to inhalation of food and vomit; R65.21 Severe sepsis with septic shock; J96.91 Respiratory failure, unspecified with hypoxia; N17.0 Acute kidney failure with tubular necrosis; G93.49 Other encephalopathy; I10 Essential (primary) hypertension; E11.649 Type 2 diabetes mellitus with hypoglycemia without coma; E78.5 Hyperlipidemia, unspecified; D64.9 Anemia, unspecified; R74.01 Elevation of levels of liver transaminase levels; D69.6 Thrombocytopenia, unspecified; Z78.1 Physical restraint status; Z82.49 Family history of ischemic heart disease and other diseases of the circulatory system; Z83.3 Family history of diabetes mellitus
CPT/HCPCS: 36415; 36556; 36573; 36600; 70496; 70498; 70551; 71045; 76937; 78580; 80048; 80053; 80076; 80202; 80305; 81003; 82140; 82375; 82607; 82805; 82962; 83036; 83605; 83735; 83880; 84100; 84145; 84443; 84484; 85025; 85027; 85379; 86705; 86709; 86850; 86900; 87070; 87186; 87340; 93005; 93306; 93970; 94002; 94003; 94640; 99291; C1725; C9113; J1650; J2185; J2370; J2543; J2919; J3010; J3370; J3490; J7030; J7050; J7060; Q9967